=== PATIENT | female | born 1985 ===

== ENCOUNTER 2018-04-14 20:27 | Emergency (ER) | payer OTHER ==
[~2018-04-14] VITALS: Ht 154.9 cm; Wt 65.8 kg
[2018-04-14] MEDS ORDERED: PRENATAL 19 TA1 EAC1 (20:42)
== END 2018-04-14 22:26 | disposition home or self-care (01) ==
LOC: ER 20:27
DX: R30.0 Dysuria (principal); R42 Dizziness and giddiness

== ENCOUNTER 2018-07-17 06:26 | Inpatient (IN) | payer OTHER ==
[~2018-07-17] VITALS: Ht 154.9 cm; Wt 68.0 kg
[~2018-07-17 06:26] MED LIST: PRENATAL 19 TA1 EAC1
== END 2018-07-20 11:00 | disposition home or self-care (01) | DRG 788 ==
LOC: OB/GYN 06:26 → O/R 06:26 → OB/GYN 08:30
PROVIDERS: ADMIT Specialist
PROC: 4A0HXFZ Measurement of Products of Conception, Cardiac Rhythm, External Approach (ICD-10-PCS; 2018-07-17)
PROC: 10D00Z1 Extraction of Products of Conception, Low, Open Approach (ICD-10-PCS; principal; 2018-07-17 08:30)
DX: O82 Encounter for cesarean delivery without indication (principal); Z3A.39 39 weeks gestation of pregnancy; Z37.0 Single live birth